=== PATIENT | male | born 1945 | race Caucasian/White ===

== ENCOUNTER → 2018-06-25 | Outpatient (CLI) | payer MEDICARE | END | disposition home or self-care (01) | LOC: RAH 08:39 | PROVIDERS: ATTEND General Practice | DX: M47.26 Other spondylosis with radiculopathy, lumbar region (principal); M48.061 Spinal stenosis, lumbar region without neurogenic claudication; M51.16 Intervertebral disc disorders with radiculopathy, lumbar region; N28.1 Cyst of kidney, acquired | CPT/HCPCS: 72148 ==

== ENCOUNTER 2021-03-31 16:11 | Emergency (ER) | payer MEDICARE ==
[~2021-03-31] VITALS: Ht 180.3 cm; Wt 81.6 kg
[2021-03-31 16:51] LABS: BASOPHILS % (AUTO) 0.4 % (0.0-5.0); EOSINOPHILS % (AUTO) 1.1 % (0.0-8.0); LYMPHOCYTES % (AUTO) 12.2 % (21.0-51.0); MEAN CORPUSCULAR HEMOGLOBIN 32.9 pg (27.0-33.0); MEAN CORPUSCULAR HGB CONC 32.6 g/dL (32.0-36.0); NEUTROPHILS % (AUTO) 77.9 % (40.0-77.0); PLATELET COUNT (AUTO) 291 K/uL (130-400); RED BLOOD CELL COUNT(AUTO) 4.16 MIL/uL (4.50-6.20); RED CELL DISTRIBUTION WIDTH 12.5 % (11.0-15.5); WHITE BLOOD COUNT (AUTO) 8.3 K/uL (4.8-10.8)
[2021-03-31 16:59] LABS: CREATININE 1.5 mg/dL (0.5-1.5); POTASSIUM 4.5 mmol/L (3.5-5.1)
[2021-03-31 17:02] LABS: INR 1.59 (0.85-1.15); PROTHROMBIN TIME 16.6 SEC (9.6-11.6)
[2021-03-31 17:08] LABS: ALBUMIN 3.8 g/dL (3.5-5.0); BILIRUBIN,TOTAL 0.9 mg/dL (0.2-1.0); TOTAL PROTEIN, SERUM 7.5 g/dL (6.0-8.3)
[2021-03-31] MEDS ORDERED: 0.9%NACL 1000ML 1,000 ML IV ONE ×2 (17:30→17:45)
[2021-03-31 19:31] VITALS: BP 145/80
[2021-03-31 19:42] LABS: APPEARANCE,URINE Clear (CLEAR); BILIRUBIN,URINE Negative (NEGATIVE); COLOR,URINE Yellow (YELLOW); GLUCOSE, URINE (UA) Negative (NEGATIVE); KETONES,URINE 15 mg/dL (NEGATIVE); LEUKOCYTE ESTERASE ,URINE Negative (NEGATIVE); NITRATE,URINE Negative (NEGATIVE); OCCULT BLOOD,URINE Small (NEGATIVE); PH,URINE 5.5 (5.0-8.0); PROTEIN,URINE Trace mg/dL (NEGATIVE); UROBILINOGEN,URINE 0.2 mg/dL (0.2-1.0)
[2021-03-31 19:56] LABS: BACTERIA,URINE Few /HPF (None Seen); SQUAMOUS EPITHELIAL CELL,UR Rare /HPF (0-2); WBC,URINE 0-1 /HPF (0-1)
[2021-03-31 19:57] LABS: MUCUS,URINE Rare LPF (None Seen)
== END 2021-03-31 20:04 | disposition home or self-care (01) ==
LOC: EDH 16:11
DX: D53.9 Nutritional anemia, unspecified (principal); R42 Dizziness and giddiness; I10 Essential (primary) hypertension
CPT/HCPCS: 36415; 70450; 71045; 80053; 81001; 84484; 85025; 85610; 93005; 96360; 99285; J7030

== ENCOUNTER 2023-11-14 19:39 | Inpatient (IN) | payer MEDICARE ==
[~2023-11-14] VITALS: Ht 175.3 cm; Wt 83.7 kg
[2023-11-14 20:08] LABS: BASOPHILS # (AUTO) 0.03 K/uL (0.00-0.20); BASOPHILS % (AUTO) 0.3 % (0.0-5.0); EOSINOPHILS # (AUTO) 0.03 K/uL (0.00-0.70); EOSINOPHILS % (AUTO) 0.3 % (0.0-8.0); HEMATOCRIT 41.2 % (42-54); IMMATURE GRANULOCYTE ABSOLUTE 0.03 K/uL (0-1); LYMPHOCYTES # (AUTO) 0.6 K/uL (1.0-4.8); LYMPHOCYTES % (AUTO) 5.3 % (21.0-51.0); MEAN CORPUSCULAR HEMOGLOBIN 33.3 pg (27.0-33.0); MEAN CORPUSCULAR VOLUME 97.9 fL (79-99); MONOCYTES # (AUTO) 0.5 K/uL (0.1-1.0); MONOCYTES % (AUTO) 4.5 % (3.0-13.0); NEUTROPHILS # (AUTO) 10.3 K/uL (1.8-7.7); NEUTROPHILS % (AUTO) 89.3 % (40.0-77.0); PLATELET COUNT (AUTO) 148 K/uL (130-400); RED BLOOD CELL COUNT(AUTO) 4.21 MIL/uL (4.50-6.20); RED CELL DISTRIBUTION WIDTH 12.5 % (11.0-15.5); WHITE BLOOD COUNT (AUTO) 11.5 K/uL (4.8-10.8)
[2023-11-14] MEDS: FAMOTIDINE 20MG VIAL IV ONE (20:11)
[2023-11-14] MEDS: SOLU-MEDROL 125MG VIAL IVP ONE (20:11)
[2023-11-14 20:17] LABS: CREATININE 1.3 mg/dL (0.5-1.3); POTASSIUM 3.7 mmol/L (3.5-5.1)
[2023-11-14 20:21] LABS: ALBUMIN 3.6 g/dL (3.5-5.0); BILIRUBIN,TOTAL 0.6 mg/dL (0.2-1.0)
[2023-11-14] MEDS: 0.9%NACL 1000ML 1,000 ML IV ONE (21:01)
[2023-11-14] MEDS: DiphenhydrAMINE HCL 50 MG/ML VIAL IV ONE (21:01)
[2023-11-14] MEDS: SOLU-MEDROL 125MG VIAL IVP SCH (21:27)
[2023-11-14] MEDS ORDERED: POLYETHYLENE GLYCOL 3350 17 GM POWD.PACK PO PRN (21:30)
[2023-11-14] MEDS ORDERED: ONDANSETRON 4MG INJ IVP PRN (21:30)
[2023-11-14] MEDS ORDERED: ACETAMINOPHEN 325 MG TAB PO PRN (21:30)
[2023-11-14] MEDS ORDERED: LABETALOL 20MG SYG IV PRN (21:30)
[2023-11-14] MEDS: 0.9%NACL 1000ML 1,000 ML IV SCH (21:55)
[2023-11-14] MEDS: HEPARIN 5,000 UNIT VIAL SQ SCH (21:55)
[2023-11-15 07:11] LABS: ALBUMIN 2.9 g/dL (3.5-5.0); BILIRUBIN,TOTAL 0.7 mg/dL (0.2-1.0); CREATININE 1.4 mg/dL (0.5-1.3); MAGNESIUM 1.6 mg/dL (1.80-2.40); POTASSIUM 4.7 mmol/L (3.5-5.1); TOTAL PROTEIN, SERUM 6.2 g/dL (6.0-8.3)
[2023-11-15 08:05] LABS: B-TYPE NATRIURETIC PEPTIDE 85 pg/mL (0-100)
[2023-11-15 08:10] LABS: BASOPHILS # (AUTO) 0.02 K/uL (0.00-0.20); BASOPHILS % (AUTO) 0.2 % (0.0-5.0); HEMATOCRIT 37.8 % (42-54); IMMATURE GRANULOCYTE ABSOLUTE 0.07 K/uL (0-1); LYMPHOCYTES # (AUTO) 0.4 K/uL (1.0-4.8); MEAN CORPUSCULAR HEMOGLOBIN 33.2 pg (27.0-33.0); MEAN CORPUSCULAR HGB CONC 32.8 g/dL (32.0-36.0); MEAN CORPUSCULAR VOLUME 101.1 fL (79-99); MONOCYTES # (AUTO) 0.3 K/uL (0.1-1.0); MONOCYTES % (AUTO) 2.1 % (3.0-13.0); NEUTROPHILS # (AUTO) 11.1 K/uL (1.8-7.7); NEUTROPHILS % (AUTO) 94.1 % (40.0-77.0); PLATELET COUNT (AUTO) 183 K/uL (130-400); RED BLOOD CELL COUNT(AUTO) 3.74 MIL/uL (4.50-6.20); RED CELL DISTRIBUTION WIDTH 12.5 % (11.0-15.5); WHITE BLOOD COUNT (AUTO) 11.8 K/uL (4.8-10.8)
[2023-11-15] MEDS: DiphenhydrAMINE HCL 50 MG/ML VIAL IV PRN (11:16)
[2023-11-15] MEDS: INSULIN HUMULIN R 100 UNIT/ML 3ML SQ SCH (11:30)
[2023-11-15 14:02] VITALS: BP 155/74; PULSE 85; RESP 16
[2023-11-15 15:59] VITALS: BP 155/93; PULSE 72; RESP 16
[2023-11-15] MEDS ORDERED: AEC81 PO ×2 (16:59)
[2023-11-15] MEDS ORDERED: TAMS-1 PO (16:59)
[2023-11-15] MEDS ORDERED: LOSA50TA64 PO (16:59)
[2023-11-15] MEDS ORDERED: ALPR0.5T PO (16:59)
[2023-11-15] MEDS ORDERED: ROSU40TA70 PO (16:59)
[2023-11-15] MEDS ORDERED: CLOP-31 PO (16:59)
[2023-11-15] MEDS ORDERED: METO50TA18 PO (16:59)
[2023-11-15 20:00] VITALS: BP 156/86; PULSE 69; RESP 19; O2SAT 96
[2023-11-15] MEDS: HYDROCORTISONE 1% CREAM 28G TP SCH (21:00)
[2023-11-15] MEDS: METOPROLOL TARTRATE 50 MG TAB PO SCH (21:59)
[2023-11-15] MEDS: ALPRAZOLAM 0.5 MG TABLET PO SCH (21:59)
[2023-11-15] MEDS: LOSARTAN 50 MG TABLET PO SCH (22:01)
[2023-11-16] VITALS (8 sets, daily range): BP systolic 154–189; BP diastolic 76–98; PULSE 50–65; RESP 16–20; O2SAT 95–96
[2023-11-16] MEDS ORDERED: COMPOUND IV MISC 1 EACH IVSOLN MISC PRN (08:30)
[2023-11-16] MEDS ORDERED: COMPOUND IV REFRIGERATED 1 EACH IVSOLN MISC PRN (08:30)
[2023-11-16] MEDS: ASPIRIN 81 MG EC TAB PO SCH (08:49)
[2023-11-16] MEDS: TAMSULOSIN HCL 0.4 MG CAP.ER.24H PO SCH (08:50)
[2023-11-16] MEDS: M.V.I. 10 ML, FOLIC ACID 1 MG, THIAMINE HCL 100 MG in 0.9%NACL 1000ML IV SCH (08:52)
[2023-11-16] MEDS: CLOPIDOGREL 75MG TAB PO SCH (09:00)
[2023-11-16] MEDS: LORAZEPAM 2 MG/ML 1 ML VIAL IVP SCH (14:10)
[2023-11-17] VITALS (7 sets, daily range): BP systolic 144–184; BP diastolic 78–100; PULSE 45–67; RESP 18–20; O2SAT 95–96
[2023-11-17] MEDS: HYDRALAZINE HCL 10 MG TABLET PO PRN (00:02)
[2023-11-17] MEDS: AMLODIPINE 5 MG TAB PO SCH (09:02)
[2023-11-17] MEDS: METOPROLOL TARTRATE 25 MG TAB PO SCH (09:05)
[2023-11-17] MEDS ORDERED: LORAZEPAM 2 MG/ML 1 ML VIAL IVP PRN (13:00)
[2023-11-17] MEDS: MAGNESIUM 2GM PREMIX 50ML 50 ML IV PRN (15:59)
[2023-11-18] VITALS (9 sets, daily range): BP systolic 131–175; BP diastolic 78–96; PULSE 62–83; RESP 18–20; O2SAT 93–95
[2023-11-19] VITALS (8 sets, daily range): BP systolic 123–156; BP diastolic 71–98; PULSE 68–83; RESP 18–20; O2SAT 96–98
[2023-11-19 14:48] LABS: HEMATOCRIT 38.2 % (42-54); MEAN CORPUSCULAR HEMOGLOBIN 33.1 pg (27.0-33.0); MEAN CORPUSCULAR HGB CONC 33.8 g/dL (32.0-36.0); MEAN CORPUSCULAR VOLUME 97.9 fL (79-99); RED BLOOD CELL COUNT(AUTO) 3.9 MIL/uL (4.50-6.20); RED CELL DISTRIBUTION WIDTH 12.7 % (11.0-15.5); WHITE BLOOD COUNT (AUTO) 6.9 K/uL (4.8-10.8)
[2023-11-19 15:06] LABS: ALBUMIN 2.8 g/dL (3.5-5.0); BILIRUBIN,TOTAL 0.5 mg/dL (0.2-1.0); CREATININE 1.2 mg/dL (0.5-1.3); POTASSIUM 3.6 mmol/L (3.5-5.1); TOTAL PROTEIN, SERUM 6.2 g/dL (6.0-8.3)
[2023-11-20] VITALS (8 sets, daily range): BP systolic 114–152; BP diastolic 70–89; PULSE 71–88; RESP 17–20; O2SAT 94–97
[2023-11-21] VITALS: BP 141/72; PULSE 72; RESP 18
[2023-11-21 04:00] VITALS: BP 133/73; PULSE 84; RESP 18
[2023-11-21 08:00] VITALS: BP 144/78; PULSE 89; RESP 18
[2023-11-21 10:00] VITALS: O2SAT 96
[2023-11-21 12:00] VITALS: BP 131/82; PULSE 79; RESP 18
== END 2023-11-21 17:11 | disposition home or self-care (01) | DRG 918 ==
LOC: EDH 19:39 → OBSVTOIN 21:05 → EDHIP 21:05 → 3DH 11-15 13:45
PROVIDERS: ADMIT Internal Medicine Hematology & Oncology; ATTEND Internal Medicine Hematology & Oncology
DX: T63.441A Toxic effect of venom of bees, accidental (unintentional), initial encounter (principal); F10.239 Alcohol dependence with withdrawal, unspecified; F23 Brief psychotic disorder; I10 Essential (primary) hypertension; E78.5 Hyperlipidemia, unspecified; D69.6 Thrombocytopenia, unspecified; I73.9 Peripheral vascular disease, unspecified; Y92.89 Other specified places as the place of occurrence of the external cause
CPT/HCPCS: 36415; 70450; 80053; 82550; 82948; 83735; 83880; 84484; 85025; 85027; 93005; 96374; 96375; G0378; J1200; J1644; J1815; J2060; J2919; J3411; J3475; J3490; J7030

== ENCOUNTER 2023-12-05 00:47 | Emergency (ER) | payer MEDICARE ==
[~2023-12-05] VITALS: Ht 175.3 cm; Wt 81.6 kg
[~2023-12-05 00:47] MED LIST: AEC81 PO; ALPR0.5T PO; LOSA50TA64 PO; ROSU40TA70 PO; TAMS-1 PO
[2023-12-05] MEDS ORDERED: AMLO10TA4 PO (01:22)
[2023-12-05] MEDS ORDERED: CLOP75TA32 PO (01:22)
[2023-12-05] MEDS ORDERED: METO25TA6 PO (01:22)
[2023-12-05 01:27] LABS: BASOPHILS # (AUTO) 0.07 K/uL (0.00-0.20); BASOPHILS % (AUTO) 0.3 % (0.0-5.0); EOSINOPHILS # (AUTO) 0.05 K/uL (0.00-0.70); EOSINOPHILS % (AUTO) 0.2 % (0.0-8.0); HEMATOCRIT 38.8 % (42-54); IMMATURE GRANULOCYTE ABSOLUTE 0.19 K/uL (0-1); LYMPHOCYTES # (AUTO) 1.1 K/uL (1.0-4.8); LYMPHOCYTES % (AUTO) 5.3 % (21.0-51.0); MEAN CORPUSCULAR HEMOGLOBIN 32.7 pg (27.0-33.0); MONOCYTES # (AUTO) 1.8 K/uL (0.1-1.0); MONOCYTES % (AUTO) 8.7 % (3.0-13.0); NEUTROPHILS # (AUTO) 17.1 K/uL (1.8-7.7); NEUTROPHILS % (AUTO) 84.6 % (40.0-77.0); PLATELET COUNT (AUTO) 558 K/uL (130-400); RED BLOOD CELL COUNT(AUTO) 3.92 MIL/uL (4.50-6.20); RED CELL DISTRIBUTION WIDTH 12.2 % (11.0-15.5); WHITE BLOOD COUNT (AUTO) 20.2 K/uL (4.8-10.8)
[2023-12-05] MEDS ORDERED: NITROGLYCERIN 0.4 MG SL TAB SL PRN (01:30)
[2023-12-05 01:33] LABS: CREATININE 1.2 mg/dL (0.5-1.3)
[2023-12-05 01:40] LABS: ALBUMIN 2.4 g/dL (3.5-5.0); BILIRUBIN,TOTAL 0.5 mg/dL (0.2-1.0); TOTAL PROTEIN, SERUM 8.3 g/dL (6.0-8.3)
[2023-12-05] MEDS: KETOROLAC 15MG/ML VIAL (15MG/ML) IM ONE (01:40)
[2023-12-05] MEDS: ONDANSETRON 4MG INJ IVP ONE (01:47)
[2023-12-05] MEDS: 0.9%NACL 1000ML 1,000 ML IV ONE (01:47)
[2023-12-05] MEDS: FAMOTIDINE 20MG VIAL IV ONE (01:47)
[2023-12-05] MEDS: KETOROLAC 15MG/ML VIAL (15MG/ML) IV ONE (01:48)
[2023-12-05] MEDS: ASPIRIN 81MG CHEW TAB PO ONE (01:48)
[2023-12-05] MEDS ORDERED: OXYC-38 PO (01:49)
[2023-12-05] MEDS ORDERED: PRED20TA3 PO (01:49)
[2023-12-05] MEDS ORDERED: CYCL5TAB PO (01:49)
[2023-12-05] MEDS: SOLU-MEDROL 40MG VIAL IVP ONE (02:08)
[2023-12-05] MEDS: MORPHINE 4 MG SYG IVP ONE (02:08)
[2023-12-05] MEDS: CYCLOBENZAPRINE HCL 10 MG TABLET PO ONE (02:09)
[2023-12-05 02:33] LABS: WBC MORPHOLOGY CONSISTENT W/DIFF
[2023-12-05 02:34] LABS: PLATELET MORPHOLOGY PLT CLUMPS PRESENT
[2023-12-05] MEDS: CEFTRIAXONE 1G VIAL IVPB ONE (04:48)
[2023-12-05 05:15] LABS: APPEARANCE,URINE CLEAR (CLEAR); BILIRUBIN,URINE NEGATIVE (NEGATIVE); COLOR,URINE LIGHT-YELLOW (YELLOW); GLUCOSE, URINE (UA) NEGATIVE (NEGATIVE); KETONES,URINE 5 mg/dL (NEGATIVE); LEUKOCYTE ESTERASE ,URINE 500 Leu/uL (NEGATIVE); NITRATE,URINE NEGATIVE (NEGATIVE); OCCULT BLOOD,URINE SMALL (NEGATIVE); PH,URINE 5.5 (5.0-8.0); PROTEIN,URINE NEGATIVE (NEGATIVE); UROBILINOGEN,URINE 0.2 mg/dL (0.2-1.0)
[2023-12-05 05:18] LABS: ADD UA MICROSCOPIC YES
[2023-12-05 05:19] LABS: WBC,URINE 51-100 /HPF (0-1)
[2023-12-05 07:23] VITALS: BP 137/61; PULSE 75; RESP 18; O2SAT 98
== END 2023-12-05 07:24 | disposition home or self-care (01) ==
LOC: EDH 00:47
DX: K29.70 Gastritis, unspecified, without bleeding (principal); I42.9 Cardiomyopathy, unspecified; M54.50 Low back pain, unspecified; E86.0 Dehydration; D53.9 Nutritional anemia, unspecified; F10.10 Alcohol abuse, uncomplicated; I10 Essential (primary) hypertension; E78.00 Pure hypercholesterolemia, unspecified; Z79.82 Long term (current) use of aspirin; Z79.899 Other long term (current) drug therapy; Z98.890 Other specified postprocedural states
CPT/HCPCS: 99285; 72148; 96375; 96374; 71045; 82550 ×2; 84484 ×2; 80053; 83690; 85025; 87086 ×2; 87186; 81001; 36415; 93005; J3490; J7030; J0696; J2405; J2919; J2270; J1885